=== PATIENT | male | born 1950 | race Caucasian/White ===

== ENCOUNTER 2020-09-30 16:41 | Inpatient (IN) | payer MEDICAID ==
[~2020-09-30] VITALS: Ht 170.2 cm; Wt 56.7 kg
[2020-09-30] MEDS ORDERED: IV NORMAL SALINE 1000 ML BAG IV ONE (17:00)
[2020-09-30 17:16] LABS: BASOPHILS % (AUTO) 0.3 % (0.0-2.0); EOSINOPHILS % (AUTO) 0.1 % (0.0-7.0); HEMATOCRIT 23.5 % (36.7-47.1); HEMOGLOBIN 7.7 g/dL (12.5-16.3); LYMPHOCYTES # (AUTO) 1.6 K/uL (20.0-40.0); LYMPHOCYTES % (AUTO) 14.4 % (20.5-51.5); MEAN CORPUSCULAR HGB CONC 33 g/dL (32.5-36.3); MEAN CORPUSCULAR VOLUME 94.2 fL (73.0-96.2); MONOCYTES # (AUTO) 1.1 K/uL (2.0-10.0); MONOCYTES % (AUTO) 9.9 % (0.0-11.0); NEUTROPHILS # (AUTO) 8.5 K/uL (1.8-8.9); NEUTROPHILS % (AUTO) 75.3 % (38.5-71.5); PLATELET COUNT (AUTO) 292 K/uL (152-348); WHITE BLOOD COUNT (AUTO) 11.3 K/uL (3.6-10.2)
[2020-09-30 17:18] LABS: ABG BASE EXCESS 3.3 mmol/L; ABG HCO3 27.9 mmol/L; ABG PCO2 42.5 mmHg (35.0-45.0); ABG PH 7.435 (7.350-7.450); ABG PO2 82.6 mmHg (75.0-100.0); ABG SITE RIGHT RADIAL; ABG TOTAL HEMOGLOBIN 8.6 G/dL (13.5-18.0); COHb 1.2 % (0.5-1.5); MetHb 0.3 % (0.0-1.5); O2Hb 94.6 % (94.0-97.0); VENT MODE ROOM AIR
[2020-09-30 17:19] LABS: RED BLOOD CELL COUNT(AUTO) 2.49 MIL/uL (4.06-5.63)
[2020-09-30 17:21] LABS: CARBON DIOXIDE 28 mmol/L (21-32); CHLORIDE 100 mmol/L (98-107); CREATININE 1.3 mg/dL (0.6-1.3); POTASSIUM 3.8 mmol/L (3.5-5.1); UREA NITROGEN, BLOOD 40 mg/dL (7-18)
[2020-09-30 17:22] LABS: GLUCOSE 313 mg/dL (74-106)
[2020-09-30 17:23] LABS: ETHANOL < 3 MG/DL (0-0)
[2020-09-30 17:26] LABS: ACETAMINOPHEN 11.4 ug/mL (10-30); ALANINE AMINOTRANSFERASE 23 U/L (16-63); ALKALINE PHOSPHATASE 71 U/L (50-136); ASPARTATE AMINOTRANSFERASE 10 U/L (15-37); BILIRUBIN,DIRECT 0.1 mg/dL (0.0-0.2); BILIRUBIN,TOTAL 0.2 mg/dL (0.2-1.0); TOTAL PROTEIN, SERUM 6.2 g/dL (6.4-8.2)
[2020-09-30] MEDS ORDERED: METO50TA16 PO (17:28)
[2020-09-30] MEDS ORDERED: TAMS-3 PO (17:28)
[2020-09-30] MEDS ORDERED: CHOL25CR2 PO (17:28)
[2020-09-30] MEDS ORDERED: ASPI81TA31 PO (17:28)
[2020-09-30] MEDS ORDERED: THIA100T13 PO (17:28)
[2020-09-30] MEDS ORDERED: CRAN450T9 PO (17:28)
[2020-09-30] MEDS ORDERED: INSU100V42 SQ (17:28)
[2020-09-30] MEDS ORDERED: ASCO500P18 PO (17:28)
[2020-09-30] MEDS ORDERED: DIVA125C2 PO (17:28)
--- NOTE | 2020-09-30 17:30 | NUR ---
Patient was seen by . Placed on a monitor.
[2020-09-30] MEDS ORDERED: BISA10SU61 RC (17:37)
[2020-09-30] MEDS ORDERED: LOSA50TA3 PO (17:37)
[2020-09-30] MEDS ORDERED: MULT-213 PO (17:37)
[2020-09-30] MEDS ORDERED: INSU100I19 SQ (17:37)
[2020-09-30] MEDS ORDERED: METF-442 PO (17:37)
[2020-09-30] MEDS ORDERED: GLIP5TAB13 PO (17:37)
[2020-09-30] MEDS ORDERED: MELA3TAB41 PO (17:37)
[2020-09-30] MEDS ORDERED: NA P133E RC (17:37)
[2020-09-30] MEDS ORDERED: ACET-2154 PO (17:37)
[2020-09-30] MEDS ORDERED: MAGN400O6 PO (17:37)
[2020-09-30] MEDS ORDERED: FAMO-132 PO (17:37)
[2020-09-30] MEDS ORDERED: FERR325T24 PO (17:37)
[2020-09-30] MEDS ORDERED: PANTOPRAZOLE SODIUM IV 40 MG in IV DEXTROSE 5% 100 ML IV ONE (17:45)
[2020-09-30] MEDS ORDERED: PANTOPRAZOLE SODIUM 40 MG VIAL ONE (18:04)
--- NOTE | 2020-09-30 18:12 | NUR ---
covid swab sent to lab
[2020-09-30 18:14] LABS: IRON, SERUM 34 ug/dL (50-175)
--- NOTE | 2020-09-30 18:52 | NUR ---
COVID (-) PER LAB
[2020-09-30] MEDS ORDERED: Z GUARD REMEDY PASTE 57 GM TUBE TOP PRN (19:15)
[2020-09-30] MEDS ORDERED: HYDROCODONE/APAP 5-325MG TABLET PO PRN (19:15)
[2020-09-30] MEDS ORDERED: ACETAMINOPHEN 325 MG TABLET PO PRN (19:15)
[2020-09-30] MEDS ORDERED: ONDANSETRON 4 MG/2 ML VIAL IV PRN (19:15)
[2020-09-30] MEDS ORDERED: DEXTROSE 50% 50 ML DISP.SYRIN IV PRN (19:15)
[2020-09-30] MEDS ORDERED: MAGNESIUM HYDROXIDE 30 ML LIQUID UDC PO PRN ×2 (19:15)
[2020-09-30] MEDS ORDERED: FLEET ENEMA 133 ML BOTTLE RC PRN (19:15)
[2020-09-30] MEDS ORDERED: BISACODYL 10 MG SUPP.RECT RC PRN (19:15)
--- NOTE | 2020-09-30 19:19 | NUR ---
Hand off report given to Keisha Addendum: 10/04/20 at 0917 by JOSELITO Late entry: IV still infusing en route to floor
--- NOTE | 2020-09-30 20:10 | NUR ---
Called Gely HUBBARD to give report.
[2020-09-30] MEDS ORDERED: INSULIN DETEMIR 300 UNIT/3 ML CARTRIDGE SQ SCH (21:00)
--- NOTE | 2020-09-30 21:00 | NUR ---
Received patient via gurney from ER. Patient is alert to self only. Ukrainian speaking only. When translated to in Ukrainian, patient is confused and disoriented. 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 Denies pain. No s/s of any pain or discomfort. No facial grimace. Vs wnl. H/L intact and noted to left wrist #22 gauge. Made comfortable in bed. Bed alarm on. Will continue to monitor and assess.
[2020-09-30 21:30] VITALS: BP 110/59
[2020-09-30] MEDS ORDERED: INSULIN GLARGINE,HUM 300 UNITS/3 ML CARTRIDGE SQ SCH (22:00)
[2020-09-30] MEDS: BLOOD SUGAR DIAGNOSTIC 1 EACH STRIP VI SCH (22:04)
[2020-09-30] MEDS: IV NS 1000 ML 1,000 ML IV PRN (22:04)
[2020-09-30] MEDS: INSULIN REGULAR, HUMAN 300 UNIT/3 ML VIAL SQ PRN (22:05)
[2020-09-30] MEDS: MELATONIN 3 MG TABLET PO SCH (22:10)
[2020-09-30] MEDS: LORAZEPAM 2 MG/1 ML VIAL IM PRN (22:54)
--- NOTE | 2020-09-30 23:00 | NUR ---
Patient pulled out iv and bite tubing in half. Very agitated with care. Unable to start new iv, very aggressive and striking out at staff. Patient given Ativan 0.5mg Im prn for agitation. Will continue to monitor and assess.
--- NOTE | 2020-09-30 23:15 | NUR ---
New iv started to left upper arm. Ivf infusing well.
--- NOTE | 2020-10-01 01:00 | NUR ---
Patient asleep in bed. No resp. distress noted. Ivf infusing well to left upper arm, #20 gauge. Bed alarm on. All needs attended, will continue to monitor and assess.
[2020-10-01 04:00] VITALS: BP 124/64
[2020-10-01] MEDS: LORAZEPAM 2 MG/1 ML VIAL IM PRN ×2 (05:36→22:11)
--- NOTE | 2020-10-01 05:40 | NUR ---
Patient awake in bed, unable to approach patient without patient striking out at staff. Very agitated and combative. Pt. given Ativan 0.5mg IM prn for agitation. Will continue to monitor and assess.
[2020-10-01] MEDS: BLOOD SUGAR DIAGNOSTIC 1 EACH STRIP VI SCH ×4 (06:28→20:01)
--- NOTE | 2020-10-01 07:20 | NUR ---
received patient in bed awake, calm and oriented x1. no complain of any pain or discomfort at this time. will continue to monitor.
[2020-10-01 07:58] LABS: BASOPHILS % (AUTO) 0.2 % (0.0-2.0); EOSINOPHILS # (AUTO) 0.1 K/uL (0.0-0.7); EOSINOPHILS % (AUTO) 0.7 % (0.0-7.0); HEMATOCRIT 22.4 % (36.7-47.1); LYMPHOCYTES # (AUTO) 1.2 K/uL (20.0-40.0); LYMPHOCYTES % (AUTO) 8.8 % (20.5-51.5); MEAN CORPUSCULAR HEMOGLOBIN 30.9 uug (23.8-33.4); MEAN CORPUSCULAR HGB CONC 33 g/dL (32.5-36.3); MEAN CORPUSCULAR VOLUME 94.4 fL (73.0-96.2); MONOCYTES # (AUTO) 1.2 K/uL (2.0-10.0); MONOCYTES % (AUTO) 8.9 % (0.0-11.0); NEUTROPHILS # (AUTO) 11.2 K/uL (1.8-8.9); NEUTROPHILS % (AUTO) 81.4 % (38.5-71.5); PLATELET COUNT (AUTO) 281 K/uL (152-348); WHITE BLOOD COUNT (AUTO) 13.8 K/uL (3.6-10.2)
[2020-10-01 08:10] LABS: MAGNESIUM 1.7 mg/dL (1.8-2.4); PHOSPHOROUS 2.3 mg/dL (2.5-4.9)
[2020-10-01 08:24] LABS: RED BLOOD CELL COUNT(AUTO) 2.37 MIL/uL (4.06-5.63)
[2020-10-01 08:25] LABS: HEMOGLOBIN 7.3 g/dL (12.5-16.3)
--- NOTE | 2020-10-01 08:25 | NUR ---
received critical lab value for HGB 7.3, reported to Cheryl self N.P. with no new orders at this time.
[2020-10-01] MEDS: THIAMINE HCL 100 MG TABLET PO SCH (08:26)
[2020-10-01] MEDS: INSULIN REGULAR, HUMAN 300 UNIT/3 ML VIAL SQ PRN ×2 (08:26→11:25)
[2020-10-01] MEDS: ASPIRIN 81 MG TAB.CHEW PO SCH (08:26)
[2020-10-01] MEDS: LOSARTAN POTASSIUM 50 MG TABLET PO SCH ×2 (08:33→17:10)
[2020-10-01] MEDS: CHOLECALCIFEROL 1,000 UNIT TABLET PO SCH (08:33)
[2020-10-01] MEDS: MULTIVITAMINS,THERAPEUTIC TABLET PO SCH (08:33)
[2020-10-01] MEDS: FAMOTIDINE 20 MG TABLET PO SCH ×2 (08:33→17:09)
[2020-10-01] MEDS: ASCORBIC ACID 500 MG TABLET PO SCH (08:34)
[2020-10-01] MEDS: METOPROLOL TARTRATE 50 MG TABLET PO SCH ×2 (08:34→17:09)
[2020-10-01] MEDS: DIVALPROEX SPRINKLE 125 MG CAP.SPRINK PO SCH ×2 (08:38→17:10)
[2020-10-01 08:44] LABS: POTASSIUM 3.2 mmol/L (3.5-5.1)
[2020-10-01] MEDS ORDERED: Medication Not On Formulary EA (Cranberry Fruit (Cranberry) 450 MG) PO SCH (09:00)
[2020-10-01] MEDS ORDERED: POTASSIUM CHLORIDE 20 MEQ TAB.PRT.SR PO SCH (09:45)
--- NOTE | 2020-10-01 09:45 | NUR ---
new orders received by Cheryl Collins NP to give magnesium IV AND potassium PO. orders carried out.
[2020-10-01] MEDS: MAGNESIUM SULFATE/D5W 100 ML IV SCH ×2 (09:53→10:55)
[2020-10-01 11:00] VITALS: BP 111/55
--- NOTE | 2020-10-01 11:10 | NUR ---
patient combative, restless and hitting, asked if he was in pain he said yes to give him a pill. Sebastian provided for him. patient will be continued to be monitored.
--- NOTE | 2020-10-01 12:05 | NUR ---
patient sleeping in stable condition, arousable to name. patient comfortable denies any pain at this time. patient clean, dry and comfortable. will continue to monitor.
--- NOTE | 2020-10-01 14:00 | NUR ---
seen by Cheryl Collins NP with new order, orders carried out.
[2020-10-01] MEDS: CEFTRIAXONE 1 G in IV DEXTROSE 5% 50 ML IV SCH (15:05)
[2020-10-01] MEDS: SOD FERRIC GLUC COMPLX/SUCROSE 125 MG in IV NORMAL SALINE 100 ML IV SCH (15:52)
[2020-10-01 16:00] VITALS: BP 114/53
[2020-10-01] MEDS ORDERED: NEUTRA PHOS PACKET PO ONE (16:00)
[2020-10-01] MEDS: IV NS 1000 ML 1,000 ML IV PRN (16:05)
[2020-10-01] MEDS: TAMSULOSIN HCL 0.4 MG CAP.SR.24H PO SCH (17:09)
--- NOTE | 2020-10-01 18:39 | NUR ---
patient in bed sleeping, comfortable. arousable to name. no complains of any pain or discomfort at this time. safety precautions in place. IV intact and patent running on 90ml/hr of NS. will report to oncoming nurse.
[2020-10-01 18:58] LABS: *BILIRUBIN,URIN NEGATIVE (NEGATIVE); *BLOOD, URINE NEGATIVE (NEGATIVE); *CLARITY,URINE CLEAR (CLEAR); *COLOR,URINE YELLOW (YELLOW); *KETONES,URINE TRACE (NEGATIVE); *UROBILINOGEN,URINE 0.2 E.U./dl (NORMAL); LEUKOCYTE ESTERASE ,URINE NEGATIVE (NEGATIVE); NITRITE, URINE NEGATIVE (NEGATIVE)
[2020-10-01 19:07] LABS: *AMPHETAMINE, URINE NEGATIVE (NEGATIVE); *CANNABINOID, URINE NEGATIVE (NEGATIVE); *COCCAINE, URINE NEGATIVE (NEGATIVE); *OPIATE, URINE NEGATIVE (NEGATIVE); *PHENCYCLIDINE SCREEN,URINE NEGATIVE (NEGATIVE)
[2020-10-01 19:09] LABS: UGLUCOSE 2+ (NEGATIVE)
--- NOTE | 2020-10-01 20:00 | NUR ---
Received patient asleep in bed. No s/s of any pain or discomfort. No facial grimace. Ivf infusing well to left upper arm #20 gauge. Bed alarm on. Call light in reach. All needs attended. Will continue to monitor and assess.
[2020-10-01] MEDS: MELATONIN 3 MG TABLET PO SCH (20:01)
[2020-10-01] MEDS: INSULIN GLARGINE,HUM 300 UNITS/3 ML CARTRIDGE SQ SCH (20:02)
[2020-10-01] MEDS: INSULIN REGULAR, HUMAN 300 UNITS/3 ML VIAL SQ PRN (20:03)
[2020-10-01 20:35] VITALS: BP 114/52
[2020-10-01 23:00] LABS: BACTERIA,URINE NONE SEEN /HPF (NONE SEEN); RBC,URINE 0-3 /HPF (0-3); SQUAMOUS EPITHELIAL CELL,UR NONE SEEN /HPF (NONE SEEN); URINE AMORPHOUS URATE MODERATE /HPF; WBC,URINE NONE SEEN /HPF (0-3)
[2020-10-02] VITALS (9 sets, daily range): BP systolic 102–138; BP diastolic 46–61
[2020-10-02] MEDS: IV NS 1000 ML 1,000 ML IV PRN (04:13)
[2020-10-02] MEDS: BLOOD SUGAR DIAGNOSTIC 1 EACH STRIP VI SCH ×5 (06:25→20:49)
--- NOTE | 2020-10-02 07:30 | NUR ---
received change of shift report. pt in bed sleeping, easily arousable, alfa mittens. pt alert to self, legally blind, Kinyarwanda speaking, confused. pt on 2L O2 via NC. Pt has IV access on the left UA 20g infusing NS at 90cc. no signs of distress noted, no reports of pain at this time. bed low and locked, call light within reach, will continue with plan of care.
[2020-10-02] MEDS: INSULIN REGULAR, HUMAN 300 UNIT/3 ML VIAL SQ PRN (08:15)
[2020-10-02] MEDS: METOPROLOL TARTRATE 50 MG TABLET PO SCH ×3 (08:41→18:08)
[2020-10-02] MEDS: FERROUS SULFATE 325 MG TABEC PO SCH (08:41)
[2020-10-02] MEDS: CHOLECALCIFEROL 1,000 UNIT TABLET PO SCH (08:41)
[2020-10-02] MEDS: ASPIRIN 81 MG TAB.CHEW PO SCH (08:41)
[2020-10-02] MEDS: ASCORBIC ACID 500 MG TABLET PO SCH (08:42)
[2020-10-02] MEDS: THIAMINE HCL 100 MG TABLET PO SCH (08:42)
[2020-10-02] MEDS: MULTIVITAMINS,THERAPEUTIC TABLET PO SCH (08:42)
[2020-10-02] MEDS: DIVALPROEX SPRINKLE 125 MG CAP.SPRINK PO SCH ×2 (08:42→17:42)
[2020-10-02] MEDS: FAMOTIDINE 20 MG TABLET PO SCH ×2 (08:42→17:42)
[2020-10-02] MEDS: LOSARTAN POTASSIUM 50 MG TABLET PO SCH ×3 (08:42→18:08)
[2020-10-02 09:12] LABS: BASOPHILS % (AUTO) 0.4 % (0.0-2.0); CREATININE 0.9 mg/dL (0.6-1.3); EOSINOPHILS # (AUTO) 0.2 K/uL (0.0-0.7); LYMPHOCYTES # (AUTO) 1.2 K/uL (20.0-40.0); LYMPHOCYTES % (AUTO) 12.6 % (20.5-51.5); MEAN CORPUSCULAR HEMOGLOBIN 32.2 uug (23.8-33.4); MEAN CORPUSCULAR HGB CONC 34 g/dL (32.5-36.3); MEAN CORPUSCULAR VOLUME 95.2 fL (73.0-96.2); MONOCYTES # (AUTO) 0.8 K/uL (2.0-10.0); MONOCYTES % (AUTO) 8.7 % (0.0-11.0); NEUTROPHILS # (AUTO) 7.1 K/uL (1.8-8.9); NEUTROPHILS % (AUTO) 76.3 % (38.5-71.5); PLATELET COUNT (AUTO) 263 K/uL (152-348); POTASSIUM 3.4 mmol/L (3.5-5.1); WHITE BLOOD COUNT (AUTO) 9.3 K/uL (3.6-10.2)
[2020-10-02 09:21] LABS: RED BLOOD CELL COUNT(AUTO) 2.12 MIL/uL (4.06-5.63)
[2020-10-02 09:24] LABS: HEMATOCRIT 20.2 % (36.7-47.1); HEMOGLOBIN 6.8 g/dL (12.5-16.3)
--- NOTE | 2020-10-02 09:25 | NUR ---
CRITICAL LAB VALUE: hgb 6.8, hct 20.2, hospitalist made aware.
--- NOTE | 2020-10-02 10:25 | NUR ---
called son to obtain consent for blood transfusion, no answer from son and mailbox was full, unable to leave voicemail. will call back in 30min.
--- NOTE | 2020-10-02 11:08 | NUR ---
Called Rebel Moody, son, consent obtained for blood transfusion
[2020-10-02] MEDS: INSULIN REGULAR, HUMAN 300 UNITS/3 ML VIAL SQ PRN ×2 (12:13→20:52)
[2020-10-02] MEDS: SOD FERRIC GLUC COMPLX/SUCROSE 125 MG in IV NORMAL SALINE 100 ML IV SCH (13:25)
--- NOTE | 2020-10-02 15:00 | NUR ---
Started 1 unit PRBC as ordered, will continue to monitor.
--- NOTE | 2020-10-02 15:45 | NUR ---
Breaking Primary RN. Patient re-assessed at this time and vital signs taken as well. Pt is resting in bed, with no signs of distress or signs allergic reactions such as redness, rashes or itchiness from blood transfusion of 1 PRBC, as hanged by primary nurse. Increased rate from 100 to 120 cc/hr, patient with no edema, shortness of breath or changes in mental status. VS is stable, as recorded. Will continue BT as ordered, and endorse care for re-assessment the patient according to protocols.
[2020-10-02 16:42] LABS: EOSINOPHILS % (MANUAL) 1 % (0-8); LYMPHOCYTES % (MANUAL) 18 % (20-40); NEUTROPHILS % (MANUAL) 81 % (42-75)
[2020-10-02] MEDS: TAMSULOSIN HCL 0.4 MG CAP.SR.24H PO SCH (17:41)
--- NOTE | 2020-10-02 18:04 | NUR ---
per orders 1 unit PRBC transfused. pt tolerated well, no signs of adverse reactions, no signs of distress, pt in bed resting. VS stable as documented. will continue to monitor.
[2020-10-02] MEDS: CEFTRIAXONE 1 G in IV DEXTROSE 5% 50 ML IV SCH (18:11)
--- NOTE | 2020-10-02 18:44 | NUR ---
pt in bed resting, 1 unit PRBC transfused, pt tolerated well, pt on 2L O2 via NC, pending stool sample, IV access on the left upper arm 20g infusing NS at 90cc. pt has bilateral mittens to prevent pt from pulling lines. pt oriented to self, will endorse to oncoming nurse.
[2020-10-02] MEDS: INSULIN GLARGINE,HUM 300 UNITS/3 ML CARTRIDGE SQ SCH (20:55)
[2020-10-02] MEDS: MELATONIN 3 MG TABLET PO SCH (20:58)
[2020-10-02] MEDS: LORAZEPAM 2 MG/1 ML VIAL IM PRN (21:59)
--- NOTE | 2020-10-03 01:50 | NUR ---
Pt was agitated, yelling and trying to bite and take off bilateral mittens. PRN 0.5mg Ativan given. Will continue to monitor.
[2020-10-03 04:41] VITALS: BP 123/58
[2020-10-03] MEDS: IV NS 1000 ML 1,000 ML IV PRN ×2 (05:09→18:12)
--- NOTE | 2020-10-03 06:18 | NUR ---
Pt stable throughout the shift. No s/s of acute distress or pain at this time. VS stable on 2L NC. PIV on LUA20G intact with NS running at 90cc. Incontinence care provided. Comfort care and needs attended. Safety measures in place. Will endorse to oncoming nurse.
[2020-10-03 06:27] LABS: BASOPHILS # (AUTO) 0.1 K/uL (0.0-8.0); BASOPHILS % (AUTO) 0.5 % (0.0-2.0); EOSINOPHILS # (AUTO) 0.2 K/uL (0.0-0.7); EOSINOPHILS % (AUTO) 1.9 % (0.0-7.0); HEMATOCRIT 23.8 % (36.7-47.1); LYMPHOCYTES # (AUTO) 1.8 K/uL (20.0-40.0); MEAN CORPUSCULAR HGB CONC 34 g/dL (32.5-36.3); MEAN CORPUSCULAR VOLUME 95.6 fL (73.0-96.2); MONOCYTES # (AUTO) 0.9 K/uL (2.0-10.0); MONOCYTES % (AUTO) 8.8 % (0.0-11.0); NEUTROPHILS # (AUTO) 7.4 K/uL (1.8-8.9); NEUTROPHILS % (AUTO) 71.8 % (38.5-71.5); PLATELET COUNT (AUTO) 255 K/uL (152-348); WHITE BLOOD COUNT (AUTO) 10.3 K/uL (3.6-10.2)
[2020-10-03 06:31] LABS: RED BLOOD CELL COUNT(AUTO) 2.49 MIL/uL (4.06-5.63)
[2020-10-03 06:35] LABS: CREATININE 0.9 mg/dL (0.6-1.3); POTASSIUM 3.3 mmol/L (3.5-5.1)
--- NOTE | 2020-10-03 06:45 | NUR ---
Pt's blood sugar is 58. Offered 2 cups of orange juice. Will recheck and reassess.
--- NOTE | 2020-10-03 07:32 | NUR ---
Resting but easily arousable. Rechecked bs noted 109. In no acute distress. On 2 lpm via nc tolerated. No sob noted. No facial grimacing noted. Bilateral mittens on patient with episodes of biting and pulling on lines. Reoriented. Safety precautions maintained. Kept comfortable. Continue to monitor.
[2020-10-03] MEDS: BLOOD SUGAR DIAGNOSTIC 1 EACH STRIP VI SCH ×4 (08:02→21:01)
[2020-10-03] MEDS: CHOLECALCIFEROL 1,000 UNIT TABLET PO SCH (09:26)
[2020-10-03] MEDS: ASCORBIC ACID 500 MG TABLET PO SCH (09:26)
[2020-10-03] MEDS: FAMOTIDINE 20 MG TABLET PO SCH (09:27)
[2020-10-03] MEDS: MULTIVITAMINS,THERAPEUTIC TABLET PO SCH (09:27)
[2020-10-03] MEDS: FERROUS SULFATE 325 MG TABEC PO SCH (09:27)
[2020-10-03] MEDS: DIVALPROEX SPRINKLE 125 MG CAP.SPRINK PO SCH ×2 (09:27→17:24)
[2020-10-03] MEDS: THIAMINE HCL 100 MG TABLET PO SCH (09:27)
[2020-10-03] MEDS: ASPIRIN 81 MG TAB.CHEW PO SCH (09:28)
[2020-10-03] MEDS: LOSARTAN POTASSIUM 50 MG TABLET PO SCH ×2 (09:32→17:24)
[2020-10-03] MEDS: METOPROLOL TARTRATE 50 MG TABLET PO SCH ×2 (09:33→17:24)
[2020-10-03 11:33] VITALS: BP 123/69
[2020-10-03] MEDS ORDERED: POTASSIUM CHLORIDE 20 MEQ TAB.PRT.SR PO ONE (12:00)
[2020-10-03] MEDS: INSULIN REGULAR, HUMAN 300 UNITS/3 ML VIAL SQ PRN (12:14)
[2020-10-03] MEDS: SOD FERRIC GLUC COMPLX/SUCROSE 125 MG in IV NORMAL SALINE 100 ML IV SCH (13:36)
[2020-10-03] MEDS: CEFTRIAXONE 1 G in IV DEXTROSE 5% 50 ML IV SCH (15:08)
[2020-10-03 16:00] VITALS: BP 148/74
--- NOTE | 2020-10-03 16:30 | NUR ---
Patient refusing to put nasal cannula. Risks and benefits explained but gets combative, trying to bite staff and refusing.
[2020-10-03] MEDS: INSULIN REGULAR, HUMAN 300 UNIT/3 ML VIAL SQ PRN (16:43)
[2020-10-03] MEDS: TAMSULOSIN HCL 0.4 MG CAP.SR.24H PO SCH (17:24)
--- NOTE | 2020-10-03 17:54 | NUR ---
Still need stool specimen for ob. Per [employer] TOOL LAPPER Keh give MOM but patient refused x2. Will endorse to next shift.
--- NOTE | 2020-10-03 18:50 | NUR ---
Resting. In no acute distress. Breathing even and non labored. No sob. Tried to put nasal cannula back on but got angry and hit staff. Bilateral mittens on with skin check done. Skin remains intact. Iv on left upper arm intact and patent, iv hydration tolerated. Noted with good appetite. Safety maintained. Kept comfortable.
--- NOTE | 2020-10-03 20:05 | NUR ---
RECEIVED PATIENT ASLEEP IN BED. EASILY AROUSABLE. ALERT TOT SELF, CONFUSED. BILATERAL SOFT MITTENS IN PLACE. VS WNL. IVF INFUSING WELL TO RIGHT UPPER ARM, #20 GAUGE. DENIES PAIN, NO S/S OF PAIN OR DISCOMFORT. ON RA SATING WELL, NO RESP. DISTRESS NOTED. BED ALARM ON. CALL LIGHT IN REACH. ALL NEEDS ATTENDED. WILL CONTINUE TO MONITOR AND ASSESS.
[2020-10-03 20:24] VITALS: BP 129/65
[2020-10-03] MEDS: MELATONIN 3 MG TABLET PO SCH (20:26)
[2020-10-03] MEDS: PANTOPRAZOLE SODIUM 40 MG VIAL IV SCH (20:48)
[2020-10-03] MEDS: INSULIN GLARGINE,HUM 300 UNITS/3 ML CARTRIDGE SQ SCH (21:02)
[2020-10-04 04:44] VITALS: BP 153/78
[2020-10-04] MEDS: IV NS 1000 ML 1,000 ML IV PRN ×2 (06:04→18:54)
[2020-10-04] MEDS: BLOOD SUGAR DIAGNOSTIC 1 EACH STRIP VI SCH ×4 (06:29→20:17)
[2020-10-04 06:32] LABS: CREATININE 0.8 mg/dL (0.6-1.3); POTASSIUM 4.3 mmol/L (3.5-5.1)
[2020-10-04 06:35] LABS: BASOPHILS % (AUTO) 0.5 % (0.0-2.0); EOSINOPHILS # (AUTO) 0.3 K/uL (0.0-0.7); EOSINOPHILS % (AUTO) 3.1 % (0.0-7.0); HEMATOCRIT 23.7 % (36.7-47.1); LYMPHOCYTES # (AUTO) 0.9 K/uL (20.0-40.0); LYMPHOCYTES % (AUTO) 11.3 % (20.5-51.5); MEAN CORPUSCULAR HEMOGLOBIN 32.2 uug (23.8-33.4); MEAN CORPUSCULAR HGB CONC 34 g/dL (32.5-36.3); MEAN CORPUSCULAR VOLUME 95.2 fL (73.0-96.2); MONOCYTES # (AUTO) 0.7 K/uL (2.0-10.0); MONOCYTES % (AUTO) 8.7 % (0.0-11.0); NEUTROPHILS # (AUTO) 6.1 K/uL (1.8-8.9); NEUTROPHILS % (AUTO) 76.4 % (38.5-71.5); PLATELET COUNT (AUTO) 285 K/uL (152-348)
[2020-10-04 06:53] LABS: RED BLOOD CELL COUNT(AUTO) 2.49 MIL/uL (4.06-5.63)
--- NOTE | 2020-10-04 07:32 | NUR ---
Resting in bed, easily arousable. In no acute distress. Refusing nasal cannula. No shortness of breath. Denies pain. Bilateral mittens on due to episodes of combativeness and pulling on lines. Reoriented patient. Safety maintained. Kept comfortable.
[2020-10-04] MEDS: INSULIN REGULAR, HUMAN 300 UNIT/3 ML VIAL SQ PRN ×3 (07:42→17:27)
[2020-10-04 08:00] VITALS: BP 108/83
[2020-10-04] MEDS: PANTOPRAZOLE SODIUM 40 MG VIAL IV SCH (08:10)
[2020-10-04] MEDS: ASPIRIN 81 MG TAB.CHEW PO SCH (08:10)
[2020-10-04] MEDS: CHOLECALCIFEROL 1,000 UNIT TABLET PO SCH (08:10)
[2020-10-04] MEDS: MULTIVITAMINS,THERAPEUTIC TABLET PO SCH (08:10)
[2020-10-04] MEDS: ASCORBIC ACID 500 MG TABLET PO SCH (08:10)
[2020-10-04] MEDS: DIVALPROEX SPRINKLE 125 MG CAP.SPRINK PO SCH ×3 (08:11→17:28)
[2020-10-04] MEDS: LOSARTAN POTASSIUM 50 MG TABLET PO SCH ×2 (08:12→17:29)
[2020-10-04] MEDS: THIAMINE HCL 100 MG TABLET PO SCH (08:12)
[2020-10-04] MEDS: FERROUS SULFATE 325 MG TABEC PO SCH (08:12)
[2020-10-04] MEDS: METOPROLOL TARTRATE 50 MG TABLET PO SCH ×2 (08:13→17:29)
--- NOTE | 2020-10-04 09:24 | NUR ---
WOUND CARE CONSULT: PT PRESENTS WITH SCARRING AND AREAS OF DISCOLORATION TO FEET, PRESENT ON ADMISSION. PT IS UNCOOPERATIVE AT TIMES. RECOMMENDATIONS MADE FOR SKIN PROTECTION. DISCUSSED WITH NURSING STAFF. MD IN AGREEMENT WITH PLAN OF CARE.
[2020-10-04 11:14] LABS: THYROID STIMULATING HORMONE 0.532 mIU/mL (0.358-3.740)
[2020-10-04 11:41] VITALS: BP 131/58
[2020-10-04] MEDS ORDERED: IV NORMAL SALINE 250 ML IV ONE (12:22)
[2020-10-04] MEDS ORDERED: SWABABLE VALVE TRANSFER SET EA MC ONE (12:22)
[2020-10-04] MEDS ORDERED: IOHEXOL 300MG/ML 100 ML INFUS..BTL ONE (12:22)
[2020-10-04] MEDS: LORAZEPAM 2 MG/1 ML VIAL IM PRN ×2 (12:41→20:22)
[2020-10-04 16:00] VITALS: BP 129/60
[2020-10-04] MEDS: TAMSULOSIN HCL 0.4 MG CAP.SR.24H PO SCH (17:28)
[2020-10-04] MEDS: PANTOPRAZOLE SODIUM 40 MG TABLET.DR PO SCH (17:28)
[2020-10-04] MEDS: GLUCERNA SHAKE VANILLA 237 ML CAN PO SCH (17:29)
--- NOTE | 2020-10-04 18:54 | NUR ---
Resting easily arousable. In no acute distress. Bilateral mittens for episodes of biting staff and pulling on lines. Skin remains intact. IV hydration tolerated. Due meds given and tolerated. Safety maintained. Needs attended. Will endorse for continuity of care.
[2020-10-04 19:05] LABS: EOSINOPHILS % (MANUAL) 1 % (0-8); LYMPHOCYTES % (MANUAL) 16 % (20-40); MONOCYTES % (MANUAL) 9 % (2-10); NEUTROPHILS % (MANUAL) 74 % (42-75)
[2020-10-04 19:06] LABS: BASOPHILS % (MANUAL) 0 % (0-2)
[2020-10-04 20:00] VITALS: BP 132/57
--- NOTE | 2020-10-04 20:00 | NUR ---
PATIENT AWAKE X1/2, NO COMPLAIN OF PAIN, NO COMPLAIN OF SOB. PATIENT BLIND, EXPLAINED PROCEDURE BEFORE TOUCHING THE PATIENT. PATIENT AGITATED, YELLS AND SCREAM REFUSED TO HAVE VITAL SIGN TAKEN. PATIENT HAS BILATERAL HAND MITTENS TO PREVENT PULLING OUT IV LINES. PATIENT HAND MITTENS CHECK FOR PLACEMENT AND CIRCULATIONS. PATIENT KEPT CLEAN AND DRY, WILL GIVE MEDS ORDERED FOR AGITATION, AND ANXIETY, CONT TO MONITOR.
[2020-10-04] MEDS: INSULIN GLARGINE,HUM 300 UNITS/3 ML CARTRIDGE SQ SCH (20:25)
[2020-10-04] MEDS: INSULIN REGULAR, HUMAN 300 UNITS/3 ML VIAL SQ PRN (20:26)
[2020-10-04] MEDS: MELATONIN 3 MG TABLET PO SCH (20:29)
[2020-10-04] MEDS: ACETAMINOPHEN 325 MG TABLET PO PRN (22:23)
[2020-10-04] MEDS: QUETIAPINE FUMARATE 25 MG TABLET PO PRN (22:24)
--- NOTE | 2020-10-05 02:01 | NUR ---
Patient sleep intermittenly, given tylenol and seroquel for psychosis mb yelling and screaming for no apparent reason. Patient was kept clean dry and comfortable, feed patient with snack such as pudding. Patient has no s/s of hypogylcemia noted, kept clean and dry. Patient able to turn and reposition self, cont to monitor.
[2020-10-05 04:00] VITALS: BP 156/74
[2020-10-05] MEDS: ACETAMINOPHEN 325 MG TABLET PO PRN ×2 (04:21→12:11)
[2020-10-05] MEDS: QUETIAPINE FUMARATE 25 MG TABLET PO PRN (04:22)
--- NOTE | 2020-10-05 04:31 | NUR ---
Patient yelling and screaming, due to dementia, given food and water, kept diaper clean and dry, but not effective. Patient given Seroquel 12.5mg po plus Tylenol for pain and discomfort, cont to monitor.
--- NOTE | 2020-10-05 05:15 | NUR ---
Patient complain of penile pain, and abdomen was tender, patient has wet diaper due to incontinence of bladder. Patient was check for bladder retention with 699 cc of urine on the bladder, notify dr. Alvarado with order of flomax and In and Out one time order for retention. Patient straight cath was done with 600 cc of yellow clear urine obtained. Patient given tylenol for pain as ordered, tolerate well, cont to monitor.
[2020-10-05] MEDS: PANTOPRAZOLE SODIUM 40 MG TABLET.DR PO SCH (06:05)
[2020-10-05] MEDS: BLOOD SUGAR DIAGNOSTIC 1 EACH STRIP VI SCH ×2 (06:05→12:06)
[2020-10-05] MEDS ORDERED: TAMSULOSIN HCL 0.4 MG CAP.SR.24H PO SCH (07:00)
[2020-10-05 08:00] VITALS: BP 161/73
[2020-10-05] MEDS: ASPIRIN 81 MG TAB.CHEW PO SCH (08:27)
[2020-10-05] MEDS: THIAMINE HCL 100 MG TABLET PO SCH (08:27)
[2020-10-05] MEDS: CHOLECALCIFEROL 1,000 UNIT TABLET PO SCH (08:27)
[2020-10-05] MEDS: MULTIVITAMINS,THERAPEUTIC TABLET PO SCH (08:27)
[2020-10-05] MEDS: ASCORBIC ACID 500 MG TABLET PO SCH (08:27)
[2020-10-05] MEDS: DIVALPROEX SPRINKLE 125 MG CAP.SPRINK PO SCH ×2 (08:27→12:27)
[2020-10-05 08:28] VITALS: BP 161/73
[2020-10-05] MEDS: LOSARTAN POTASSIUM 50 MG TABLET PO SCH (08:28)
[2020-10-05] MEDS: METOPROLOL TARTRATE 50 MG TABLET PO SCH (08:28)
[2020-10-05] MEDS: FERROUS SULFATE 325 MG TABEC PO SCH (08:28)
[2020-10-05] MEDS: GLUCERNA SHAKE VANILLA 237 ML CAN PO SCH (09:05)
[2020-10-05 09:25] LABS: BASOPHILS # (AUTO) 0.1 K/uL (0.0-8.0); BASOPHILS % (AUTO) 0.8 % (0.0-2.0); EOSINOPHILS # (AUTO) 0.3 K/uL (0.0-0.7); EOSINOPHILS % (AUTO) 3.8 % (0.0-7.0); HEMATOCRIT 26.4 % (36.7-47.1); HEMOGLOBIN 8.7 g/dL (12.5-16.3); LYMPHOCYTES # (AUTO) 1.2 K/uL (20.0-40.0); LYMPHOCYTES % (AUTO) 16.8 % (20.5-51.5); MEAN CORPUSCULAR HEMOGLOBIN 31.9 uug (23.8-33.4); MEAN CORPUSCULAR HGB CONC 33 g/dL (32.5-36.3); MEAN CORPUSCULAR VOLUME 96.8 fL (73.0-96.2); MONOCYTES # (AUTO) 0.8 K/uL (2.0-10.0); MONOCYTES % (AUTO) 10.7 % (0.0-11.0); NEUTROPHILS # (AUTO) 4.8 K/uL (1.8-8.9); NEUTROPHILS % (AUTO) 67.9 % (38.5-71.5); PLATELET COUNT (AUTO) 344 K/uL (152-348); RED BLOOD CELL COUNT(AUTO) 2.72 MIL/uL (4.06-5.63); WHITE BLOOD COUNT (AUTO) 7.1 K/uL (3.6-10.2)
[2020-10-05 09:26] LABS: POTASSIUM 3.5 mmol/L (3.5-5.1)
[2020-10-05] MEDS: MAGNESIUM SULFATE/D5W 100 ML IV SCH ×2 (10:00→11:05)
[2020-10-05 10:04] LABS: *OCCULT BLOOD STOOL NEGATIVE (NEGATIVE)
[2020-10-05 10:07] LABS: *IMMUNOGLOBULIN G, SERUM 936 mg/dL (603-1613); IMMUNOGLOBULIN A, SERUM 256 mg/dL (61-437); IMMUNOGLOBULIN M, SERUM 45 mg/dL (20-172)
--- NOTE | 2020-10-05 10:38 | NUR ---
placed daigle catheter per brigid flat polisher orders and plan for discharge. spoke to case management to arrange transportation for discharge.
--- NOTE | 2020-10-05 11:57 | NUR ---
spoke to becca from [facility] to give report. informed that estimated time of pickers material handlers is 1330.
[2020-10-05] MEDS: INSULIN REGULAR, HUMAN 300 UNIT/3 ML VIAL SQ PRN (12:11)
[2020-10-05 13:06] LABS: A/G RATIO 0.8 (0.7-1.7); ALBUMIN 2.2 g/dL (2.9-4.4); ALPHA-1-GLOBULIN 0.3 g/dL (0.0-0.4); ALPHA-2-GLOBULIN 0.7 g/dL (0.4-1.0); BETA GLOBULIN 0.8 g/dL (0.7-1.3); GAMMA GLOBULIN 0.9 g/dL (0.4-1.8); GLOBULIN, TOTAL 2.7 g/dL (2.2-3.9); M-SPIKE Not Observed g/dL (Not Observed)
--- NOTE | 2020-10-05 13:48 | NUR ---
Report received from Deonna Bolden who as reported completed pt's dcd.
--- NOTE | 2020-10-05 14:45 | NUR ---
[facility] ambulance here to take pt. pt confused, IVF d/cd, saline lock removed - site without swelling or redness noted, daigle cath intact and draining yellow urine, report given to ambulance attendants, left in stable condition with all belongings
== END 2020-10-05 14:45 | DRG 420 ==
LOC: ER 16:41 → MEDSURG3 20:42
PROVIDERS: ADMIT Nurse Practitioner Acute Care; ATTEND Nurse Practitioner Family
PROC: 30233N1 Transfusion of Nonautologous Red Blood Cells into Peripheral Vein, Percutaneous Approach (ICD-10-PCS; principal; 2020-10-02)
DX: E11.65 Type 2 diabetes mellitus with hyperglycemia (principal); N17.0 Acute kidney failure with tubular necrosis; G93.41 Metabolic encephalopathy; E44.0 Moderate protein-calorie malnutrition; F03.90 Unspecified dementia, unspecified severity, without behavioral disturbance, psychotic disturbance, mood disturbance, and anxiety; R62.7 Adult failure to thrive; D50.9 Iron deficiency anemia, unspecified; D72.829 Elevated white blood cell count, unspecified; I10 Essential (primary) hypertension; K21.9 Gastro-esophageal reflux disease without esophagitis; R33.8 Other retention of urine; Z79.4 Long term (current) use of insulin; F39 Unspecified mood [affective] disorder; E88.09 Other disorders of plasma-protein metabolism, not elsewhere classified; Z20.822 Contact with and (suspected) exposure to COVID-19; N40.1 Benign prostatic hyperplasia with lower urinary tract symptoms; E86.0 Dehydration; Z68.1 Body mass index [BMI] 19.9 or less, adult
CPT/HCPCS: 36415; 36600; 70030-TC; 71045; 71270; 82378; 82784; 83550; 83735; 84100; 84153; 84155; 84165; 84443; 85025; 85610; 86334; 86850; 86900; 86901; 86920; 87086; 93005; A4663; C1758; C9113; G0378; G0480; J0696; J1815; J2060; J2916; J3475; J3490; J7030; J7050; J7060; P9016-BL; P9021; Q9967

== ENCOUNTER 2022-01-09 17:04 | Emergency (ER) | payer MEDICAID ==
[~2022-01-09] VITALS: Ht 162.6 cm; Wt 68.0 kg
[~2022-01-09 17:04] MED LIST: ACET-2154 PO; ASCO500P18 PO; ASPI81TA31 PO; BISA10SU61 RC; CHOL25CR2 PO; CRAN450T9 PO; DIVA125C2 PO; FAMO-132 PO; FERR325T24 PO; GLIP5TAB13 PO; INSU100I19 SQ; INSU100V42 SQ; LOSA50TA3 PO; MAGN400O6 PO; MELA3TAB41 PO; METF-442 PO; METO50TA16 PO; MULT-213 PO; NA P133E RC; TAMS-3 PO; THIA100T13 PO
--- NOTE | 2022-01-09 18:00 | NUR ---
Urine collected and sent to LAB.
[2022-01-09] MEDS ORDERED: ZIPRASIDONE MESYLATE 20 MG VIAL IM ONE ×2 (18:07→18:15)
[2022-01-09 18:22] LABS: *BILIRUBIN,URIN NEGATIVE (NEGATIVE); *CLARITY,URINE CLOUDY (CLEAR); *COLOR,URINE LIGHT YELLOW (YELLOW); *KETONES,URINE NEGATIVE (NEGATIVE); *UROBILINOGEN,URINE 0.2 E.U./dl (NORMAL); LEUKOCYTE ESTERASE ,URINE TRACE (NEGATIVE); NITRITE, URINE NEGATIVE (NEGATIVE); PH,URINE 8.5 (5.0-8.0); UGLUCOSE NEGATIVE (NEGATIVE)
[2022-01-09 18:34] LABS: *BLOOD, URINE TRACE (NEGATIVE)
[2022-01-09 18:51] LABS: RBC,URINE 0-3 /HPF (0-3); WBC,URINE 0-3 /HPF (0-3)
[2022-01-09 18:52] LABS: BACTERIA,URINE FEW /HPF (NONE SEEN); SQUAMOUS EPITHELIAL CELL,UR FEW /HPF (NONE SEEN); TRIPLE PHOSPHATE CRYSTAL,UR MODERATE /HPF (NONE SEEN); URINE AMORPHOUS PHOSPHATES MANY /HPF
[2022-01-09 22:21] LABS: HEMATOCRIT 30.7 % (36.7-47.1); MEAN CORPUSCULAR HEMOGLOBIN 31.5 uug (23.8-33.4); PLATELET COUNT (AUTO) 220 K/uL (152-348)
[2022-01-09 22:46] LABS: ALANINE AMINOTRANSFERASE 24 U/L (16-63); ALKALINE PHOSPHATASE 64 U/L (50-136); ASPARTATE AMINOTRANSFERASE 10 U/L (15-37); BILIRUBIN,DIRECT < 0.1 mg/dL (0.0-0.2); BILIRUBIN,TOTAL 0.2 mg/dL (0.2-1.0); CARBON DIOXIDE 33 mmol/L (21-32); CHLORIDE 101 mmol/L (98-107); CREATININE 1.3 mg/dL (0.6-1.3); GLUCOSE 256 mg/dL (74-106); LIPASE 58 U/L (73-393); POTASSIUM 4.5 mmol/L (3.5-5.1); TOTAL PROTEIN, SERUM 7.2 g/dL (6.4-8.2); UREA NITROGEN, BLOOD 31 mg/dL (7-18)
[2022-01-09] MEDS ORDERED: IV NS 1000 ML 1,000 ML IV ONE ×3 (23:15)
[2022-01-10] MEDS ORDERED: GENTAMICIN SULFATE 20 MG/2 ML VIAL IV ONE (04:45)
[2022-01-10] MEDS ORDERED: GENTAMICIN SULFATE 80 MG/2 ML VIAL ONE (05:21)
[2022-01-10] MEDS ORDERED: PROC10TA29 PO (05:51)
--- NOTE | 2022-01-10 06:16 | NUR ---
Called [facility] ambulance to take patient back to [facility]. ETA is 1hr.
--- NOTE | 2022-01-10 08:46 | NUR ---
transport unit arrived at 0820 to take patient back to [facility]. IV removed, site secured and pressure dressing applied. daigle catheter removed. report given to Rick COX. pt in stable condition.
== END 2022-01-10 08:30 ==
LOC: ER 17:11
DX: E86.0 Dehydration (principal); D64.9 Anemia, unspecified; E11.9 Type 2 diabetes mellitus without complications; Z20.822 Contact with and (suspected) exposure to COVID-19; F39 Unspecified mood [affective] disorder; K21.9 Gastro-esophageal reflux disease without esophagitis; N40.0 Benign prostatic hyperplasia without lower urinary tract symptoms; M62.84 Sarcopenia; Z89.421 Acquired absence of other right toe(s); Z79.4 Long term (current) use of insulin; Z79.82 Long term (current) use of aspirin; Z79.899 Other long term (current) drug therapy; Z89.412 Acquired absence of left great toe; Z89.411 Acquired absence of right great toe; Z93.6 Other artificial openings of urinary tract status
CPT/HCPCS: 71045; 87426; 80076; 80048; 81001; 82607; 83690; 85025; 85730; 86850; 86900; 86901; 87086; 84484; 36415; 93005; 96372; 83605; 99285; 96365; 96361; J3486; J1580; J7040; A4663